=== PATIENT | male | born 1960 | race Caucasian/White ===

== ENCOUNTER 2024-12-06 08:46 | Emergency (ER) | payer MEDICARE, OTHER ==
[~2024-12-06] VITALS: Ht 177.8 cm; Wt 80.0 kg
[~2024-12-06 08:46] MED LIST: ACETAMINOPHEN325 M1 PO; ANUSOL-HC25 MG RC; LORATADINE10 MG PO; MEGA MULTI FOR1 EAC1 PO; PERCOCET 7.5-31 EACH PO; ZOFRAN8 MG PO
[2024-12-06] MEDS ORDERED: LISINOPRIL20 MG PO (08:59)
[2024-12-06] MEDS ORDERED: LIDOCAINE 2% VISCOUS 6 ML SYR TOP ONE (09:15)
[2024-12-06 09:30] LABS: BILIRUBIN, URINE NEGATIVE (negative); BLOOD/HGB, URINE TRACE-I (Negative); KETONE, URINE NEGATIVE (Negative); LEUK ESTERASE, URINE NEGATIVE (negative); NITRITE, URINE NEGATIVE (negative)
[2024-12-06 09:39] LABS: EPITHELIAL CELLS, URINE 0 /lpf (0-1+); WHITE BLOOD CELLS, URINE 0-1 /HPF (0-5)
[2024-12-06 09:40] LABS: BACTERIA, URINE NONE SEEN /hpf (negative); CASTS, URINE NONE SEEN \\lpf; COLLECTION TYPE, URINE CATH; CRYSTALS, URINE CALCIUM OXALATE 1+ (0-1+); REFLEX CULTURE, URINE No (No)
[2024-12-06] MEDS ORDERED: TAMSULOSIN HCL 0.4 MG CAP PO ONE (09:45)
[2024-12-06] MEDS ORDERED: SODIUM CHLORIDE 0.9% 1,000 ML IV ONE (09:45)
[2024-12-06 10:04] LABS: BASOPHILS 0.7 % (0-2); EOSINOPHILS 0.3 % (0-6); HEMATOCRIT 42.6 % (35.0-50.0); LYMPHOCYTES 11.4 % (24-44); MCH 31.7 (27-36); MCHC 35.2 g/dl (30-36); MONOCYTES 5.6 % (0-12); PLATELET COUNT 289 K/uL (140-440); RBC 4.73 M/ul (4.3-5.7)
[2024-12-06 10:19] LABS: ALBUMIN/GLOBULIN RATIO 1.08 (1.1-2.4); ANION GAP 16.5 (7-21); BUN/CREATININE RATIO 20.75 (6.0-28.6); CALCIUM 9.5 mg/dL (8.5-10.1); CREATININE, SERUM 1.06 mg/dL (0.70-1.30); POTASSIUM 3.5 mmol/L (3.5-5.1); PROTEIN, TOTAL 7.7 g/dL (6.4-8.2)
[2024-12-06] MEDS ORDERED: FLOMAX0.4 MG PO (11:40)
[2024-12-06 11:45] VITALS: BP 141/75
[2024-12-06] MEDS ORDERED: PHENAZOPYRIDINE HCL 100 MG TAB PO ONE (11:45)
[2024-12-07] MEDS ORDERED: HYDROCODON-ACE1 EA11 PO (18:31)
[2024-12-07] MEDS ORDERED: ONDANSETRON ODT8 MG PO (18:31)
== END 2024-12-06 11:50 | disposition home or self-care (01) ==
LOC: ED 08:46
PROVIDERS: Emergency Medicine
DX: R33.9 Retention of urine, unspecified (principal); Z88.0 Allergy status to penicillin; Z79.899 Other long term (current) drug therapy
CPT/HCPCS: 36415; 51702; 51798; 74177; 80053; 81001; 85025; 99284-25; A4311; J7030; Q9967

== ENCOUNTER 2024-12-07 14:03 | Emergency (ER) | payer MEDICARE, OTHER ==
[~2024-12-07] VITALS: Ht 177.8 cm; Wt 81.0 kg
[~2024-12-07 14:03] MED LIST changes: +FLOMAX0.4 MG PO; +LISINOPRIL20 MG PO
--- OUTSIDE RECORDS SUMMARY | 2024-12-07 14:10 | XMS ---
PreManage Notification: BIANCA PARKS Security Media Coordinator Events No recent Security Events currently on file CRITERIA MET - [facility] - 2 Visits in 30 Days CARE PROVIDERS There are no care providers on record at this time. Shukri has no Care Guidelines for this patient. Liliya VISIT COUNT (12 MO.) 2 [facility] TOTAL 2 NOTE: Visits indicate total known visits. ED/C VISIT TRACKING (12 MO.) [facility]07[facility]24 14[facility] COMPLAINT: - CATHETER PROBLEM 12/06/2024 08:47 [facility] [place] TYPE: Emergency COMPLAINT: - URINE PROBLEM INPATIENT VISIT TRACKING (12 MO.) No inpatient visits to display in this time frame [email or web address]
[2024-12-07] MEDS ORDERED: ONDANSETRON 4 MG TAB ODT SL ONE (16:45)
[2024-12-07] MEDS ORDERED: LIDOCAINE 2% VISCOUS 6 ML SYR TOP ONE (16:45)
[2024-12-07] MEDS ORDERED: HYDROCODONE/ACETA 7.5/325 TAB PO ONE (16:45)
[2024-12-07] MEDS ORDERED: HYDROCODON-ACE1 EA11 PO (18:31)
[2024-12-07] MEDS ORDERED: ONDANSETRON ODT8 MG PO (18:31)
[2024-12-07 18:43] VITALS: BP 136/78
== END 2024-12-07 18:43 | disposition home or self-care (01) ==
LOC: ED 14:03
DX: T83.091A Other mechanical complication of indwelling urethral catheter, initial encounter (principal); Z79.899 Other long term (current) drug therapy; Z88.0 Allergy status to penicillin
CPT/HCPCS: 51702; 99283; A9270

== ENCOUNTER 2024-12-18 16:06 | Inpatient (IN) | payer MEDICARE ==
[~2024-12-18] VITALS: Ht 177.8 cm; Wt 110.2 kg
[~2024-12-18 16:06] MED LIST changes: +HYDROCODON-ACE1 EA11 PO; +ONDANSETRON ODT8 MG PO
--- OUTSIDE RECORDS SUMMARY | 2024-12-18 16:12 | XMS ---
PreManage Notification: BIANCA PARKS Security Safety Equipment Testing Specialist Events No recent Security Events currently on file CRITERIA MET - [facility] - 2 Visits in 30 Days CARE PROVIDERS There are no care providers on record at this time. Shukri has no Care Guidelines for this patient. Liliya VISIT COUNT (12 MO.) 3 [facility] T[facility] 3 NOTE: Visits indicate total known visits. ED/C VISIT TRACKING (12 MO.) 12/18/2024 16:[address] [facility] [place] TYPE: Emergency COMPLAINT: - ABDNORMAL LAB RESULTS 12/07/2024 14:03 [facility] [place] TYPE: Emergency COMPLAINT: - CATHETER PROBLEM DIAGNOSES: - Allergy status to penicillin - Hematuria, unspecified - Other adjunct faculty for medical terminology (current) drug therapy - Other mechanical complication of indwelling urethral catheter, initial encounter 12/06/2024 08:47 [facility] [place] TYPE: Emergency COMPLAINT: - URINE PROBLEM DIAGNOSES: - Allergy status to penicillin - Other usp (current) drug therapy - Retention of urine, unspecified INPATIENT VISIT TRACKING (12 MO.) No inpatient visits to display in this time frame [email or web address]
[2024-12-18] MEDS ORDERED: SODIUM CHLORIDE 0.9% 1,000 ML IV PRN (18:00)
[2024-12-18] MEDS ORDERED: ondansetron HCL 4 MG/2 ML VIAL IV ONE (18:00)
[2024-12-18] MEDS ORDERED: LIDOCAINE 2% VISCOUS 6 ML SYR TOP ONE ×3 (18:15→21:30)
[2024-12-18 18:20] LABS: ALBUMIN 3.6 g/dL (3.4-5.0); ALBUMIN/GLOBULIN RATIO 0.84 (1.1-2.4); ANION GAP 12.5 (7-21); BILIRUBIN, TOTAL 1.1 mg/dL (0.2-1.0); BUN/CREATININE RATIO 17.47 (6.0-28.6); CALCIUM 9.5 mg/dL (8.5-10.1); CREATININE, SERUM 1.03 mg/dL (0.70-1.30); POTASSIUM 3.5 mmol/L (3.5-5.1); PROTEIN, TOTAL 7.9 g/dL (6.4-8.2)
[2024-12-18 18:28] LABS: BASOPHILS 0.2 % (0-2); HEMATOCRIT 36.4 % (35.0-50.0); HEMOGLOBIN 12.7 g/dL (12.0-18.0); LYMPHOCYTES 5.1 % (24-44); MCH 31.4 (27-36); MCV 89.7 fl (81-99); MONOCYTES 4.5 % (0-12); NEUTROPHILS 90.2 % (39-80); PLATELET COUNT 259 K/uL (140-440); RBC 4.06 M/ul (4.3-5.7); RDW 13.6 (10.5-15.0)
[2024-12-18] MEDS ORDERED: LORazepam 2 MG/ML VIAL IV ONE (18:45)
[2024-12-18 19:12] LABS: BILIRUBIN, URINE NEGATIVE (negative); BLOOD/HGB, URINE LARGE (Negative); KETONE, URINE >=80 (Negative); LEUK ESTERASE, URINE TRACE (negative); NITRITE, URINE POSITIVE (negative); PH, URINE 8.5 (5-7)
[2024-12-18 19:24] LABS: RED BLOOD CELLS, URINE >50 /hpf (0-5)
[2024-12-18 19:25] LABS: BACTERIA, URINE 1+ /hpf (negative); CASTS, URINE NONE SEEN \\lpf; COLLECTION TYPE, URINE CATH; CRYSTALS, URINE NONE SEEN (0-1+); EPITHELIAL CELLS, URINE SQUAMOUS 1+ /lpf (0-1+); REFLEX CULTURE, URINE Yes (No); WHITE BLOOD CELLS, URINE 21-40 /HPF (0-5)
[2024-12-18] MEDS ORDERED: CEFEPIME HCL 2 GM in DEXTROSE 5% 100 ML IV ONE (19:30)
[2024-12-18] MEDS ORDERED: METOCLOPRAMIDE HCL 10 MG/2 ML SDV IV ONE (19:30)
[2024-12-18] MEDS ORDERED: AZO STANDARD95 MG PO (19:34)
[2024-12-18] MEDS ORDERED: FLOMAX0.4 MG PO (19:34)
[2024-12-18 19:49] LABS: LACTIC ACID, BLOOD 1.3 mmol/L (0.4-2.0)
[2024-12-18 21:26] VITALS: BP 164/94
[2024-12-18] MEDS ORDERED: ondansetron HCL 4 MG/2 ML VIAL IV PRN (21:30)
[2024-12-18] MEDS ORDERED: SODIUM CHLORIDE 0.9% 1,000 ML IV SCH (21:30)
--- NOTE | 2024-12-18 21:30 | NUR ---
PATIENT TO THE FLOOR FROM ER BY THIS RN. PATIENT TRANSFERRED FROM STRETCHER TO BED INDEPENDENTLY. IV FLUID INFUSING PER ORDER. BED WEIGHT AND VS OBTAINED AND RECORDED. CPOX IN PLACE. PATIENT EDUCATED TO ROOM AND CALL LIGHT. PATIENT VERBILIZES UNDERSTANDING. ASSESSMENT COMPLETE. PATIENT DENIES FURTHER NEEDS AT THIS TIME. CALL LIGHT IN REACH.
--- NOTE | 2024-12-18 23:56 | NUR ---
PATIENT RESTING IN BED WITH EYES CLOSED. RESPIRATIONS EVEN AND UNLABORED. O2 SAT 94% ON 2L. CALL LIGHT IN REACH.
[2024-12-19] VITALS (10 sets, daily range): BP systolic 125–156; BP diastolic 59–85
--- NOTE | 2024-12-19 01:50 | NUR ---
PATIENT RESTING IN BED. VS AND I&Os OBTAINED AND RECORDED. PATIENT DENIES PAIN AND STATES THAT HE IS SLEEPING WELL. PATIENT HAS NO FURTHER NEEDS AT THIS TIME. CALL LIGHT IN REACH.
--- NOTE | 2024-12-19 03:20 | NUR ---
PATIENT RESTING IN BED ON BACK WITH EYES CLOSED. RESPIRATIONS EVEN AND UNLABORED. CALL LIGHT IN REACH.
[2024-12-19 05:27] LABS: BASOPHILS 0.3 % (0-2); EOSINOPHILS 0.3 % (0-6); HEMATOCRIT 33.8 % (35.0-50.0); HEMOGLOBIN 11.9 g/dL (12.0-18.0); LYMPHOCYTES 11.6 % (24-44); MCH 31.5 (27-36); MCHC 35.3 g/dl (30-36); MCV 89.1 fl (81-99); MONOCYTES 8.7 % (0-12); NEUTROPHILS 79.1 % (39-80); PLATELET COUNT 270 K/uL (140-440); RDW 13.5 (10.5-15.0)
--- NOTE | 2024-12-19 05:38 | NUR ---
NEW BACK IV FLUID INFUSING PER ORDER. PATIENT RESTING IN BED ON BACK WITH EYES CLOSED. RESPIRATIONS EVEN AND UNLABORED. CALL LIGHT IN REACH.
--- NOTE | 2024-12-19 07:35 | NUR ---
Patient resting in bed, eyes closed, respirations even and non labored. Patient has no notable distress. Call light within reach.
[2024-12-19] MEDS ORDERED: CEFEPIME HCL 2 GM in SODIUM CHLORIDE 0.9% 100 ML IV SCH (08:00)
[2024-12-19] MEDS ORDERED: FUROSEMIDE20 MG PO (08:12)
[2024-12-19] MEDS ORDERED: POTASSIUM CHLO10 ME1 PO (08:12)
[2024-12-19] MEDS ORDERED: TAMSULOSIN HCL 0.4 MG CAP PO SCH (09:00)
[2024-12-19] MEDS ORDERED: lisinopriL 20 MG TAB PO SCH (09:00)
[2024-12-19] MEDS ORDERED: CLARITIN10 MG PO (09:04)
[2024-12-19] MEDS ORDERED: CENTRAVITES 501 EACH PO (09:05)
[2024-12-19] MEDS ORDERED: ONDANSETRON ODT8 MG PO (09:06)
--- NOTE | 2024-12-19 09:06 | NUR ---
MED REC COMPLETE
--- NOTE | 2024-12-19 09:24 | NUR ---
Patient sitting up in chair, alert and oriented x3, no acute distress. Patient reports soft formed bm this morning. Patient denies nausea. Fresh water at bedside. IV remains patent, fluids/abx infusing per order. Personal supplies and call light within reach.
[2024-12-19] MEDS ORDERED: ENOXAPARIN SODIUM 40 MG/0.4 ML SYR SUB-Q SCH (09:52)
[2024-12-19] MEDS ORDERED: ACETAMINOPHEN 325 MG TAB PO PRN (10:00)
[2024-12-19] MEDS ORDERED: ondansetron HCL 4 MG/2 ML VIAL IV PRN (10:00)
--- NOTE | 2024-12-19 10:18 | NUR ---
UR CLINICAL REVIEW: 2 MN FOR VERSALUS-PER UX UI DESIGNER MEETS OBS FOR CAUTI WITH NEED TO MONITOR MEDICARE OBS 12/18/24 @ 1607 ORDER MATCHES REG NO AUTH REQUIRED PER MEDICARE GUIDELINES DISCHARGE TO HOME WHEN STABLE 12/20/24
--- NOTE | 2024-12-19 10:58 | NUR ---
VISITED DURING SPIRITUAL CARE ROUNDS. PT APPEARED TO BE SLEEPING. DID NOT DISTURB. PROVIDED PRAYER.
--- NOTE | 2024-12-19 11:35 | NUR ---
Patient in bed watching tv, no distress. Patient denies needs at this time. IV fluids infusing per order. Personal supplies and call light within reach.
[2024-12-19] MEDS ORDERED: PHARMACY RENAL DOSE ADJUSTMENT 1 DOSE MISC PO SCH (12:00)
--- NOTE | 2024-12-19 13:30 | NUR ---
Spoke with Oleg. He states he lives in a house with 2 steps with a ramp. His 's mom lives with them. He does not use any DME, but did have a peters catheter placed last week for retention. He has an appt to see urology tomorrow. Pt states he is usually active, but has not been due to discomfort from the catheter. He lives with his and she does the household tasks. 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 Plans for dc to home. He denies any financial or safety issues in his home.
--- NOTE | 2024-12-19 16:43 | NUR ---
Patient in bed watching tv, no acute distress. Patient denies nausea at this time. Patient reports he is tolerating po well. No current needs, call light within reach.
--- NOTE | 2024-12-19 17:03 | NUR ---
Updated patient's Briana over the phone regarding patient status and plan of care.
--- NOTE | 2024-12-19 18:08 | NUR ---
Patient sitting up in bed eating dinner, no distress. Patient denies nausea. No current needs, personal supplies and call light within reach.
--- NOTE | 2024-12-19 19:32 | NUR ---
RECEIVED REPORT FROM EMILI ENCISO. PT SLEEPING SOUNDLY. WHITE BOARD UPDATED. CALL LIGHT WITHIN REACH.
[2024-12-19] MEDS ORDERED: MELATONIN 3 MG TAB PO PRN (21:00)
--- NOTE | 2024-12-19 21:15 | NUR ---
PT AWAKE. VSS. ORIENTED X 4. DENIES PAIN. LSC. HRR. BTA. LBM TODAY. KIM CATH W/ DARK YELLOW URINE, SOME SEDIMENT. RAC IV INFUSING NS @ 125MLS/HR. PT REQUESTED 7-UP, PROVIDED. KIM CARE DONE BY BEN RAMIREZ. CALL LIGHT WITHIN REACH.
--- NOTE | 2024-12-19 21:43 | NUR ---
KIM CARE DONE.
--- NOTE | 2024-12-19 22:50 | NUR ---
PT SLEEPING, APPEARS COMFORTABLE.
--- NOTE | 2024-12-19 23:50 | NUR ---
SLEEPING SOUNDLY. CPOX IN PLACE.
[2024-12-20] VITALS (14 sets, daily range): BP systolic 175–185; BP diastolic 79–96
--- NOTE | 2024-12-20 02:24 | NUR ---
PT SLEEPING SOUNDLY. APPEARS COMFORTABLE.
[2024-12-20 05:26] LABS: BASOPHILS 0.8 % (0-2); HEMATOCRIT 35.1 % (35.0-50.0); HEMOGLOBIN 12.3 g/dL (12.0-18.0); LYMPHOCYTES 15.7 % (24-44); MCH 31.3 (27-36); MCHC 35.1 g/dl (30-36); MONOCYTES 8.4 % (0-12); NEUTROPHILS 74.1 % (39-80); PLATELET COUNT 277 K/uL (140-440); RBC 3.94 M/ul (4.3-5.7); RDW 13.5 (10.5-15.0)
[2024-12-20 05:41] LABS: ALBUMIN 2.8 g/dL (3.4-5.0); ALBUMIN/GLOBULIN RATIO 0.74 (1.1-2.4); ANION GAP 12.1 (7-21); BILIRUBIN, TOTAL 0.7 mg/dL (0.2-1.0); BUN/CREATININE RATIO 18.29 (6.0-28.6); CALCIUM 8.8 mg/dL (8.5-10.1); CREATININE, SERUM 0.82 mg/dL (0.70-1.30); MAGNESIUM 1.9 mg/dL (1.8-2.4); POTASSIUM 3.1 mmol/L (3.5-5.1); PROTEIN, TOTAL 6.6 g/dL (6.4-8.2)
--- NOTE | 2024-12-20 05:41 | NUR ---
PT UP IN RECLINER, C/O NAUSEA. PT MEDICATED W/ PRN IV ZOFRAN AND GIVEN ANISHA LUISA PER REQUEST. UP TO BR W/ SBA. LARGE AMT OF BELCHING AND FLATUS. KIM CATH W/ YELLOW URINE AND SCANT SEDIMENT.
--- NOTE | 2024-12-20 06:14 | NUR ---
PT STILL FEELING NAUSEATED, DRY HEAVING AND LOTS OF BELCHING. PT GIVEN ALCOHOL SWABS TO SMELL. EMESIS BAG AT BEDSIDE.
--- NOTE | 2024-12-20 07:01 | NUR ---
PT HAD EMESIS OF 100cc. ASSISTED BACK TO BED.
--- NOTE | 2024-12-20 07:38 | NUR ---
Patient resting in bed, eyes closed, respirations even and non labored. Patient has no notable distress. IV fluids infusing per order. Call light within reach.
--- NOTE | 2024-12-20 07:57 | NUR ---
HOURLY ROUNDING. PATIENT SLEEPING AT THE MOMMENT, NO REQUEST CALL LIGHT HAS BEEN PLACED WITHIN REACH. BOARD HAS BEEN UPDATED WITH NURSE AND MANAGER FLIGHT OPERATIONS NAME
[2024-12-20] MEDS ORDERED: LABETALOL HCL 100 MG/20 ML MDV IV PRN (08:00)
[2024-12-20] MEDS ORDERED: POTASSIUM BICARBONATE/CIT AC 20 MEQ TABEF PO ONE (08:00)
[2024-12-20] MEDS ORDERED: LABETALOL HCL 20 MG/4 ML VIAL IV PRN (08:30)
[2024-12-20] MEDS ORDERED: PROCHLORPERAZINE EDISYLATE 10 MG/2 ML VIAL IV PRN (08:30)
[2024-12-20] MEDS ORDERED: POTASSIUM CHLORIDE 40 MEQ,LIDOCAINE HCL 1% 40 MG in DEXTROSE 5% 250 ML IV ONE (08:30)
--- NOTE | 2024-12-20 08:37 | NUR ---
PATIENT DRY HEAVING AND HOLDING HIS STOMACH. PATIENT REPORTS ABDOMINAL PAIN, HE POINTS TO HIS BLADDER REGION. KIM IS PATENT, FLUSHED TO ENSURE PATENCY, NOTABLE RETURN OF CLEAR YELLOW URINE. WARM PACK PLACED OVER BLADDER. ADMIN COMPAZINE 10MG SLOW IV PUSH WITH TYLENOL 650MG PO AT THIS TIME. PATIENT CALMING DOWN AND STARTING TO FALL ASLEEP. CALL LIGHT WITHIN REACH OF PT.
[2024-12-20] MEDS ORDERED: lisinopriL 20 MG TAB PO SCH (09:00)
--- NOTE | 2024-12-20 09:17 | NUR ---
bp 189/84, p68. Admin labetalol 20mg slow iv push.
[2024-12-20] MEDS ORDERED: POTASSIUM CHLORIDE 10 MEQ TABCR PO ONE (10:00)
--- NOTE | 2024-12-20 10:20 | NUR ---
Spoke with Oleg. He states he is not feeling well. He has been nauseated and vomiting since this morning. He denies any needs.
--- NOTE | 2024-12-20 10:25 | NUR ---
bp 181/92, p58. Admin labetalol 20mg slow iv push.
--- NOTE | 2024-12-20 10:50 | NUR ---
Patient restin in bed, eyes closed, respirations non labored. IV fluids/kcl infusing per order. Patient denies needs at this time. Personal supplies and call light within reach.
--- NOTE | 2024-12-20 10:57 | NUR ---
PT NOT AVAILABLE FOR VISIT. PROVIDED PRAYER.
--- NOTE | 2024-12-20 13:37 | NUR ---
UR CONCURRENT REVIEW: 2 MN FOR VERSALUS-MEET INPT FOR CAUTI WITH NEED FOR IV ABX AND ANTIEMETICS MEDICARE OBS TO INPT 12/20/24 ORDER MATCHES REG NO AUTH REQUIRED PER MEDICARE GUIDELINES DISCHARGE TO HOME WHEN STABLE
[2024-12-20] MEDS ORDERED: AMLODIPINE BESYLATE 5 MG TAB PO SCH (13:45)
--- NOTE | 2024-12-20 13:58 | NUR ---
Patient in bed resting, easily wakes to verbal stimuli. Patient reports improved nausea. Continued elevated bp. Dr. Ruggiero updated regarding this- [facility] started. Patient declined lunch. Mansoor prvided per his request. in to see patient, updated her regarding plan of care.
--- NOTE | 2024-12-20 14:01 | NUR ---
Patient resting in bed, easily wakes to verbal sitmuli. Patient reports nausea has improved. Continued elevated bp, Dr. Chavez notified. Norvasc started per provider order. in to see patient, this RN updated her regarding plan of care.
--- NOTE | 2024-12-20 15:55 | NUR ---
Pt resting in bed, respirations even and non labored, no acute distress. No notable distress. Personal supplies and call light within reach.
--- NOTE | 2024-12-20 16:05 | NUR ---
PATIENT IN BED AT THIS TIME. EYELET MAKER CHARTED HOURLY ROUNDS. CALL LIGHT WITHIN REACH, NO FURTHER NEEDS AT THIS TIME.
--- NOTE | 2024-12-20 18:34 | NUR ---
Patient sitting up in chair watching tv, alert and oriented x3. Patient more alert conversing with staff this evening, he reports he feels much better. Warm blanket and fresh water provided. Patient encouaraged to increase fluid intake, pt receptive.
--- NOTE | 2024-12-20 19:15 | NUR ---
PATIENT SITTING UP IN CHAIR WATCHING TV. PATIENT DENIES ANY NEEDS AT THIS TIME. CALL LIGHT AND PERSONAL BELONGINGS ARE WITHIN REACH.
--- NOTE | 2024-12-20 20:55 | NUR ---
FRESH ICE WATER PROVIDED. PATIENT REPORTING SOME NAUSEA AND REQUESTING NAUSEA MEDICATION. PATIENT WITHOUT FURTHER NEEDS. CALL LIGHT AND PERSONAL BELONGINGS ARE WITHIN REACH.
--- NOTE | 2024-12-20 21:20 | NUR ---
PATIENT MEDICATED PER EMAR. PATIENT ASSESSMENT COMPLETED. PATIENT IS ALERT AND ORIENTED. NAUSEA MEDICATION GIVEN. WET WASHCLOTH PROVIDED PER PATIENT REQUEST "TO COVER MY EYES THROUGHOUT THE NIGHT SO THEY DON'T DRY OUT". PATIENT WITHOUT FURTHER NEEDS AT THIS TIME. CALL LIGHT AND PERSONAL BELONGINGS ARE WITHIN REACH.
--- NOTE | 2024-12-20 22:15 | NUR ---
PATIENT RESTING IN BED WITH WASHCLOTH OVER EYES AND MOUTH OPEN. EVEN AND UNLABRORED RESPIRATIONS NOTED. CALL LIGHT AND PERSONAL BELONGINGS ARE WITHIN REACH.
--- NOTE | 2024-12-20 23:20 | NUR ---
PATIENT RESTING IN BED WITH WASHCLOTH OVER HIS EYES AND MOUTH OPENED. EVEN AND UNLABORED RESPIRATIONS NOTED. CALL LIGHT AND PERSONAL BELONGINGS ARE WITHIN REACH.
[2024-12-21] VITALS (8 sets, daily range): BP systolic 114–160; BP diastolic 66–91
--- NOTE | 2024-12-21 00:28 | NUR ---
PATIENT RESTING IN BED WITH WASHCLOTH OVER HIS EYES AND MOUTH OPENED. EVEN AND UNLABORED RESPIRATIONS NOTED. CALL LIGHT AND PERSONAL BELONGINGS ARE WITHIN REACH.
--- NOTE | 2024-12-21 01:53 | NUR ---
PATIENT RESTING IN BED AND WOKE WHEN THIS RN OPENED DOOR. PATIENT DENIES ANY PAIN OR NAUSEA. FRESH ICE FOR WATER AND CRACKERS PROVIDED. PATIENT WITHOUT FURTHER NEEDS AT THIS TIME. CALL LIGHT AND PERSONAL BELONINGS ARE WITHIN REACH.
--- NOTE | 2024-12-21 03:01 | NUR ---
PATIENT RESTING IN BED AND STATES "I'M DOING OKAY". CALL LIGHT AND PERSONAL BELONGINGS ARE WITHIN REACH.
--- NOTE | 2024-12-21 04:54 | NUR ---
PATIENT RESTING IN BED WITH HIS EYES CLOSED AND MOUTH OPEN. EVEN AND UNLABORED RESPIRATIONS NOTED. CALL LIGHT AND PERSONAL BELONGINGS ARE WITHIN REACH.
[2024-12-21 05:22] LABS: BASOPHILS 1.1 % (0-2); EOSINOPHILS 0.8 % (0-6); HEMATOCRIT 34.6 % (35.0-50.0); HEMOGLOBIN 12.4 g/dL (12.0-18.0); LYMPHOCYTES 17.1 % (24-44); MCH 31.3 (27-36); MCHC 35.7 g/dl (30-36); MCV 87.6 fl (81-99); MONOCYTES 7.7 % (0-12); NEUTROPHILS 73.3 % (39-80); PLATELET COUNT 314 K/uL (140-440); RBC 3.95 M/ul (4.3-5.7); RDW 13.6 (10.5-15.0)
[2024-12-21 05:37] LABS: ALBUMIN/GLOBULIN RATIO 0.77 (1.1-2.4); ANION GAP 9.9 (7-21); BILIRUBIN, TOTAL 0.7 mg/dL (0.2-1.0); BUN/CREATININE RATIO 16.45 (6.0-28.6); CALCIUM 9.1 mg/dL (8.5-10.1); CREATININE, SERUM 0.79 mg/dL (0.70-1.30); MAGNESIUM 2.1 mg/dL (1.8-2.4); POTASSIUM 2.9 mmol/L (3.5-5.1); PROTEIN, TOTAL 6.9 g/dL (6.4-8.2)
--- NOTE | 2024-12-21 05:38 | NUR ---
RN [facility] OBTAINED VITALS AND I&O. PT STATES NO NEEDS AT THIS TIME. CALL LIGHT WITHIN REACH.
--- NOTE | 2024-12-21 06:17 | NUR ---
PATIENT MEDICATED PER EMAR. PATIENT WITHOUT FURTHER NEEDS AT THIS TIME. CALL LIGHT AND PERSONAL BELONGINGS ARE WITHIN REACH.
--- NOTE | 2024-12-21 07:20 | NUR ---
RECIEVED REPORT FROM EMILI BURRELL. PT LYING IN BED AWAKE, AT THE BEDSIDE. PT REQUESTS ICE WATER, REQUESTS COFFEE, BOTH GIVEN. PT STATES NO FURTHER NEEDS AT THIS TIME, CALL LIGHT WITHIN REACH.
[2024-12-21] MEDS ORDERED: POTASSIUM CHLORIDE 40 MEQ,LIDOCAINE HCL 1% 40 MG in DEXTROSE 5% 250 ML IV ONE ×2 (07:45→09:00)
--- NOTE | 2024-12-21 08:15 | NUR ---
INTO SEE PATIENT. PATIENT EATING BREAKFAST AND SITTING WITH HIS . HOPES TO GET DISCHARGED TODAY. WILL TAKE HIM HOME. NO FUTHER CM NEEDS OR QUESTIONS.
[2024-12-21] MEDS ORDERED: AMLODIPINE BESYLATE 10 MG TAB PO SCH (09:00)
--- NOTE | 2024-12-21 09:15 | NUR ---
MD AT THE BEDSIDE. PT AWAKE UP TO CHAIR. CALL LIGHT WITHIN REACH.
--- NOTE | 2024-12-21 09:57 | NUR ---
PATIENT CALL THIS MORING WANTED TO SIT UP IN HIS CHAIR. BED LINENS CHANGED. ASKED PATIENT IF HE WOULD LIKE TO TAKE A SHOWER TODAY AND HE SAID IT DEPENDED ON WHAT THE DOCTORS SAID. NOW I AM BACK IN HIS ROOM DID HIS VITALS. HE WOULD LIKE TO TAKE A SHOWER AFTER HIS KIM IS OUT. IN ROOM.
--- NOTE | 2024-12-21 10:57 | NUR ---
PT NOT AVAILABLE FOR VISIT. PROVIDED PRAYER.
--- NOTE | 2024-12-21 11:25 | NUR ---
PT UP TO SHOWER INDEPENDENTLY. LINENS CHANGED BY THIS RN. PT DENIES PAIN, NAUSEA, OR TENDERNESS TO ABDOMEN. PT STATES HE HAS PASSED GAS THIS MORNING AND ABDOMINAL PAIN HAS NOT BEEN PRESENT. PT REQUESTS ICE FOR HIS JUICE, GIVEN. PT EDUCATION ON CALLING WHEN HE VOIDS HE HAS JUST HAD HIS KIM CATHETER REMOVED, PT VERBALIZES UNDERSTANDING. PT STATES NO FURTHER NEEDS AT THIS TIME, CALL LIGHT WITHIN REACH.
--- NOTE | 2024-12-21 12:27 | NUR ---
PT FINISHES LUNCH. PT DENIES PAIN OR NAUSEA AT THIS TIME. PT STATES NO NEEDS AT THIS TIME, CALL LIGHT WITHIN REACH.
--- NOTE | 2024-12-21 14:43 | NUR ---
AFTER PATIENT'S VITALS WERE DONE. BROUGHT PATIENT A FRESH CUP OF ICE WATER AND A JUICE.
--- NOTE | 2024-12-21 15:00 | NUR ---
THIS RN NOTIFIED BY SN ROSEANNA THAT PT IV SITE IS LEAKING WITH A "SMALL BUMP" AT INSERTION SITE. THIS RN TO BEDSIDE TO ASSESS, THIS RN CONFIRMS IV INFILTRATION FROM POTASSIUM CHLORIDE INFUSION IS PRESENT. INFUSION STOPPED BY SN ROSEANNA. SN ROSEANNA PLACES NEW IV IN LEFT FOREARM. PHARMACY CONTACTED REGARDING OBTAINING HYALURONIDASE TO PERFORM PROTOCOL FOR POTASSIUM INFILTRATION. MD CALLED BY THIS RN, MD STATES TO PLACE ORDER FOR HYALURONIDASE, STATES TO NOT INFUSE SMALL AMOUNT OF POTASSIUM CHLORIDE LEFT IN BAG. MD STATES TO ORDER 40MEQ PO POTASSIUM CHLORIDE. ORDERS PLACED, REPEAT BACK PERFORMED. IV FROM INFILTRATION REMOVED, HEAT PACK APPLIED PER PROTOCOL. PT STATES NO PAIN AT SITE, NO REDNESS PRESENT. SWELLING SMALL IN SIZE. PT STATES NO NEEDS AT THIS TIME, CALL LIGHT WITHIN REACH.
[2024-12-21] MEDS ORDERED: HYALURONIDASE, HUMAN RECOMB. 150 UNIT/ML VIAL SUB-Q ONE (15:45)
[2024-12-21] MEDS ORDERED: POTASSIUM CHLORIDE 10 MEQ TABCR PO ONE (15:45)
[2024-12-21] MEDS ORDERED: POTASSIUM CHLORIDE 10 MEQ TABCR ONE (16:07)
--- NOTE | 2024-12-21 16:15 | NUR ---
PT STATES HE NEEDS TO USE RESTROOM, WALKS INDEPENDENTLY TO RESTROOM WITH IV POLE. PT STATES NO NEEDS AT THIS TIME. IN THE ROOM. CALL LIGHT WITHIN REACH.
--- NOTE | 2024-12-21 17:20 | NUR ---
THIS RN BLADDER SCANS PT DUE TO PT C/O NEEDING TO VOID BUT BEING UNABLE TO. BLADDER SCAN SHOWS [phone]. MD UPDATED. MD STATES TO STRAIGHT CATH PT AT THIS TIME. ORDER PLACED, REPEAT BACK PERFORMED.
[2024-12-21] MEDS ORDERED: LIDOCAINE 2% VISCOUS 6 ML SYR TOP ONE (17:30)
[2024-12-21 17:57] LABS: ANION GAP 10.2 (7-21); BUN/CREATININE RATIO 18.39 (6.0-28.6); CALCIUM 9.1 mg/dL (8.5-10.1); CREATININE, SERUM 0.87 mg/dL (0.70-1.30); POTASSIUM 3.2 mmol/L (3.5-5.1)
--- NOTE | 2024-12-21 18:47 | NUR ---
LIDOCAINE APPLIED PER ORDER AND PT REQUEST TO PREPARE FOR CATHETER INSERTION. STRAIGHT CATHETER ATTEMPT UNSUCCESSFUL. COUDE CATHETER UTILIZED SUCCESSFULLY, 700ML OF CLEAR YELLOW URINE REMOVED, CATHETER REMOVED AT THIS TIME. PT TOLERATES PROCEDURE WELL. HYALURONIDASE 150 UNIT GIVEN AROUND SITE OF POTASSIUM INFILTRATION PER PROTOCOL, PT TOLERATES WELL. NO INCREASE IN SWELLING PRESENT AT SITE. NO REDNESS, PAIN, OR BRUISING PRESENT AT SITE. PT REQUESTS JUICE AND ICE AT THIS TIME, GIVEN. PT DINNER TRAY SET UP. PT DENIES ANY FURTHER NEEDS AT THIS TIME, STATES HE FEELS RELIEF AFTER CATHETERIZATION. CALL LIGHT WITHIN REACH.
[2024-12-21] MEDS ORDERED: POLYETHYLENE GLYCOL 3350 1 PACKET PO ONE (19:15)
--- NOTE | 2024-12-21 19:35 | NUR ---
RECEIVED REPORT FROM EMILI PALUMBO. PT RESTING IN BED, DENIES NEEDS OR CONCERNS AT THIS TIME. CALL LIGHT WITHIN REACH.
--- NOTE | 2024-12-21 20:00 | NUR ---
PT UP AMBULATING IN ROOM, WANTS TO AMBULATE IN HALLS. DENIES PAIN. LSC. HRR. BTA. REPORTS LBM YESTERDAY. DUE TO VOID SINCE F/C REMOVAL EARLIER TODAY BUT REPORTS NO CURRENT URGE TO VOID. LFA IV INFUSING ATB THEN SL'D. PREVIOUS IV SITE TO RAC SLIGHTLY SWOLLEN AND REDDENED FROM IV KCL INFILTRATION ON DAYSHIFT.
--- NOTE | 2024-12-21 20:20 | NUR ---
PT AMBULATING INDEPENDENTLY IN HALLS. PT SIPPING ON MIRALAX WHILE WALKING.
--- NOTE | 2024-12-21 22:11 | NUR ---
PT CALLED TO REPORT VOID. 125cc URINE IN URINAL.
--- NOTE | 2024-12-22 00:26 | NUR ---
PT SLEEPING SOUNDLY, APPEARS COMFORTABLE. CALL LIGHT WITHIN REACH.
--- NOTE | 2024-12-22 02:33 | NUR ---
PT AWAKE, SLEEPING BETWEEN CARE. DENIES NEEDS OR CONCERNS AT THIS TIME.
[2024-12-22 05:38] LABS: BASOPHILS 0.7 % (0-2); EOSINOPHILS 1.3 % (0-6); HEMOGLOBIN 13.2 g/dL (12.0-18.0); LYMPHOCYTES 18.2 % (24-44); MCH 31.5 (27-36); MCHC 35.6 g/dl (30-36); MCV 88.4 fl (81-99); MONOCYTES 7.9 % (0-12); NEUTROPHILS 71.9 % (39-80); PLATELET COUNT 355 K/uL (140-440); RBC 4.19 M/ul (4.3-5.7); RDW 13.5 (10.5-15.0)
[2024-12-22 05:53] LABS: ANION GAP 11.5 (7-21); BUN/CREATININE RATIO 19.27 (6.0-28.6); CALCIUM 9.5 mg/dL (8.5-10.1); CREATININE, SERUM 0.83 mg/dL (0.70-1.30); MAGNESIUM 2.1 mg/dL (1.8-2.4); POTASSIUM 3.5 mmol/L (3.5-5.1)
[2024-12-22 05:56] VITALS: BP 148/81
--- NOTE | 2024-12-22 06:03 | NUR ---
PT UP AMBULATING IN ROOM, REQUESTING 0900 DOSE OF FLOMAX NOW PER HOME ROUTINE. FLOMAX GIVEN. PT IN TO BR TO ATEMPT ANOTHER VOID THIS AM. DENIES ANY BURNING OR DISCOMFORT W/ VOIDING, REPORTS SLOW START OF STREAM.
[2024-12-22 06:05] VITALS: BP 148/81
--- NOTE | 2024-12-22 07:10 | NUR ---
RECIEVED REPORT FROM EMILI HEAD. PT AMBULATING IN [place], STATES NO CURRENT NEEDS.
[2024-12-22] MEDS ORDERED: CEFTRIAXONE SODIUM 1 GM in SODIUM CHLORIDE 0.9% 100 ML IV SCH (07:45)
[2024-12-22] MEDS ORDERED: POTASSIUM CHLORIDE 10 MEQ TABCR PO ONE (07:45)
--- NOTE | 2024-12-22 07:45 | NUR ---
PT REQUESTED TO TAKE SHOWER. PT ABULATES INDEPENDENTLY.
--- NOTE | 2024-12-22 08:04 | NUR ---
In with pt for bladder scan, post void residual. Pt states he voided while taking a shower. Bladder scan shows >379ml. Primary RN notified.
--- NOTE | 2024-12-22 08:14 | NUR ---
Advised by ramone Chambers, that pt states he has a rash on his back. In with pt to assess skin. Noted small red raised bumps scattered over the entirety of the pt's back, some with crusted caps. Pt states that it does itch when touched, but not just sitting there. He states that he took a hot shower and had been laying in bed and thought, maybe, that it was a heat rash from sweat. Reviewed med list with pt and pt's spouse. Pt states that Norvasc is a new med for him (we administered the first dose yesterday morning and he has not had a dose, yet, today). Primary RN notified.
[2024-12-22] MEDS ORDERED: LIDOCAINE 2% VISCOUS 6 ML SYR TOP ONE (08:30)
--- NOTE | 2024-12-22 08:30 | NUR ---
AT THE BEDSIDE DISCUSSING POC WITH PT AND . MD STATES TO ORDER CHANGE OF DOSE FOR PT'S FLOMAX FROM 0.4MG TO 0.8MG. ORDER CHANGED, REPEAT BACK PERFORMED.
[2024-12-22] MEDS ORDERED: TAMSULOSIN HCL 0.4 MG CAP PO SCH (09:00)
[2024-12-22] MEDS ORDERED: LISINOPRIL20 MG PO (09:04)
[2024-12-22] MEDS ORDERED: TAMSULOSIN HCL0.4 MG PO (09:04)
[2024-12-22] MEDS ORDERED: AMLODIPINE BESY10 MG PO (09:04)
[2024-12-22] MEDS ORDERED: MACROBID 100 M100 MG PO (09:06)
[2024-12-22 09:30] VITALS: BP 128/77
--- NOTE | 2024-12-22 09:33 | NUR ---
PT WALKED LAPS IN MULLER. PT HAS NO NEEDS AT THIS TIME. PT IN CHAIR. PT IN ROOM. CALL LIGTH WITHIN REACH.
[2024-12-22 10:00] VITALS: BP 128/77
--- NOTE | 2024-12-22 10:00 | NUR ---
PT UP TO CHAIR, AT THE BEDSIDE. PT TAKES PO MEDICATIONS W/O DIFFICULTY. PT VOIDS WHILE THIS RN IN ROOM. EMILI WEST AT BEDSIDE TO DO STRAIGHT CATHETER EDUCATION, PT AND VERBALIZE UNDERSTANDING. PT STATES NO FURTHER NEEDS AT THIS TIME, CALL LIGHT WITHIN REACH.
[2024-12-22 11:00] VITALS: BP 133/66
--- NOTE | 2024-12-22 11:02 | NUR ---
IV DC'D WNL, PT DRESSED SELF IN OWN CLOTHES. VSS. DC PACKET AND EDUCATION GIVEN, PT AND VERBALIZE UNDERSTANDING. PT STATES ALL QUESTIONS HAVE BEEN ANSWERED. SUPPLIES AND EDUCATION FOR AT HOME INTERMITTENT CATHETERIZATION GIVEN TO PT TO TAKE HOME. PT LEAVES WITH ALL PERSONAL BELONGINGS. PT AMBULATES TO WHEELCHAIR, WHEELED TO FRONT OF BUILDING BY NURSING PERSONEL.
== END 2024-12-22 11:02 | disposition home or self-care (01) | DRG 700 ==
LOC: ED 16:06 → MS 16:07
PROVIDERS: Emergency Medicine; Student in an Organized Health Care Education/Training Program; ADMIT Student in an Organized Health Care Education/Training Program; ATTEND Student in an Organized Health Care Education/Training Program
DX: T83.511A Infection and inflammatory reaction due to indwelling urethral catheter, initial encounter (principal); Y84.6 Urinary catheterization as the cause of abnormal reaction of the patient, or of later complication, without mention of misadventure at the time of the procedure; N40.1 Benign prostatic hyperplasia with lower urinary tract symptoms; R33.8 Other retention of urine; Z86.19 Personal history of other infectious and parasitic diseases; B96.20 Unspecified Escherichia coli [E. coli] as the cause of diseases classified elsewhere; I10 Essential (primary) hypertension; Z88.0 Allergy status to penicillin; Z79.899 Other long term (current) drug therapy; Z90.89 Acquired absence of other organs; R09.02 Hypoxemia
CPT/HCPCS: 36415; 51701; 51798; 71045; 74177; 80048; 80053; 81001; 83605; 83735; 85025; 87088; 94762; A4311; A9270; J0692; J0696; J0780; J1650; J2060; J2405; J2765; J3473; J3480; J3490; J7030; J7060; Q9967

== ENCOUNTER 2025-04-03 11:56 | Day surgery (SDC) | payer MEDICARE ==
[~2025-04-03] VITALS: Ht 177.8 cm; Wt 75.0 kg
[~2025-04-03 11:56] MED LIST changes: +AMLODIPINE BESY10 MG PO; +AZO STANDARD95 MG PO; +CENTRAVITES 501 EACH PO; +CIPRO500 MG PO; +CLARITIN10 MG PO; +FUROSEMIDE20 MG PO; +IBLOOD GLUCOSE TEST STRIP 1 EA TEST VI PRN; +LACTATED RINGER'S 1,000 ML IV SCH; +LIDOCAINE HCL 1% 5 ML SDV INJ ONE; +MACROBID 100 M100 MG PO; +MIDAZOLAM HCL 5 MG/5 ML VIAL IV PRN; +POTASSIUM CHLO10 ME1 PO; +TAMSULOSIN HCL0.4 MG PO; +fentaNYL citrate 100 MCG/2 ML VIAL IV PRN
--- NOTE | 2025-04-03 12:31 | NUR ---
PT C/O NAUSEA/VOMITING THIS AM. MEDICATION GIVEN PER EMAR.
[2025-04-03 12:39] VITALS: BP 182/92
[2025-04-03] MEDS ORDERED: fentaNYL citrate 100 MCG/2 ML VIAL ONE (12:49)
[2025-04-03] MEDS ORDERED: MIDAZOLAM HCL 5 MG/5 ML VIAL ONE (12:49)
--- NOTE | 2025-04-03 13:56 | NUR ---
04/03/25 1356 Michelle Valenzuela 1346-PATIENT ARRIVED TO PACU ON 2L NC RR EVEN. PATIENT LAYING LEFT LATERAL REACTIVE TO VERBAL STIMULI OPENING EYES. SR WITH PVCS HR 70'S. IVF INFUSING. PATIENT AROUSING ABDOMEN SOFT REPOSITIONED SELF TO BACK PASSING GAS. 1356-PATIENT SLEEPING 2L NC 97% RR EVEN
[2025-04-03 14:32] VITALS: BP 165/90
--- NOTE | 2025-04-05 13:25 | PATH ---
[facility] [address], [place] [address] Signed SPECIMEN(S): A ASCENDING COLON POLYP SPECIMEN(S): B SIGMOID POLYP SPECIMEN SOURCE: A. ASCENDING COLON POLYP B. SIGMOID POLYP CLINICAL HISTORY: Family history of colon cancer, history of C. difficile, diverticulosis, polyps X2 FINAL PATHOLOGIC DIAGNOSIS: A. Ascending colon polyp - Fragments of tubular adenoma. B. Sigmoid polyp - Tubular adenoma. AMB MICROSCOPIC EXAMINATION: Histologic sections of all submitted blocks are examined by light microscopy. These findings, together with the gross examination, support the pathologic diagnosis. GROSS DESCRIPTION: A. The specimen, labeled and designated "Dahl, ascending colon polyp," is received in formalin and consists of three alcantara soft tissue fragments, ranging from 0.1-0.4 cm. Entirely submitted in (A1). B. The specimen, labeled and designated "Adhl, sigmoid polyp," is received in formalin and consists of a red-alcantara polypoid piece of tissue (0.7 x 0.7 x 0.5 cm). The possible resection margin is inked blue, and the tissue is bisected to reveal pink-alcantara soft cut surfaces. The specimen is submitted entirely in cassette (B1). VB (under the direct supervision of a pathologist) The Gross Description was prepared using a voice recognition system. The report was reviewed for accuracy; however, sound-alike word errors, addition and/or deletions may occur. If there is any question about this report, please contact Client Services. ADDITIONAL NOTES: Immunohistochemical and/or in situ hybridization studies if performed in this case included appropriate positive controls that reacted as expected. This PATIENT NAME: BIANCA DAHL PATHOLOGY DATE OF : 58 REPORT #: [id number] PHYSICIAN: TRINA MONSALVE PCP: CONNER SANDERS MD REPORT IS CONFIDENTIAL AND NOT TO BE RELEASED WITHOUT AUTHORIZATION [facility] [address] [place], [place] [address] Signed test was developed and its performance characteristics determined by [facility]. It has not been cleared or approved by the U.S. Food and Drug Administration. The FDA has determined that such clearance or approval is not necessary. This test is used for clinical purposes. It should not be regarded as investigational or for research. [facility] is certified under the Clinical Laboratory Improvement Amendments of 1988 (CLIA) as qualified to perform high complexity clinical laboratory testing. PERFORMING LABORATORY: Technical component was performed by [facility], [address] [place] [address] (CLIA# [id number]). Professional interpretation was performed by [facility] - [address] [id number] Diagnostician: Sudha Richey MD Pathologist Electronically Signed 04/05/2025 Copies: ~ PATIENT NAME: BIANCA DAHL PATHOLOGY DATE OF : 58 REPORT #: [id number] PHYSICIAN: TRINA PATHOLOGY PCP: CONNER SANDERS MD REPORT IS CONFIDENTIAL AND NOT TO BE RELEASED WITHOUT AUTHORIZATION
--- NOTE | 2025-04-07 14:10 | OR ---
[facility] [address], [place] [address] Signed DATE OF OPERATION: 04/03/2025 SURGEON: Lisa Mcclelland MD PREOPERATIVE DIAGNOSES: 1. Family history of colon cancer (father). 2. History of clostridium difficile colitis, July 2024. POSTOPERATIVE DIAGNOSES: 1. Diverticulosis, left and right side. 2. Polyps x2 (right colon and sigmoid at 18 cm). PROCEDURE: Total colonoscopy to cecum with cold snare polypectomy x2. ANESTHESIA: Intravenous sedation fentanyl 100 mcg, Versed 6 mg pretreatment with Zofran 4 mg. 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 He underwent colonoscopy in 2013, recommended to have repeat colonoscopy in 5 years, but did not do so. He has family history of colon cancer in his father. He understands he is behind schedule in the recommended timeframe. In July, he did have C difficile colitis which was quite problematic and ultimately was cured and clinically has no diarrhea problems. He is admitted to undergo surveillance colonoscopy on the basis of family history. He understands the risk of bleeding, infection, and perforation. FINDINGS: In the preoperative area he had rather significant retching and nausea for which Zofran was administered with good clinical effect. As regard to colonoscopy, the prep was good. Complete colonoscopy was undertaken of the cecum. There were two polyps, both excised with cold snare technique and diverticula of the sigmoid and elsewhere. DESCRIPTION OF PROCEDURE: The patient was brought to the endoscopy suite and placed in lateral decubitus position given intravenous sedation to the point of slurred speech and nystagmus. Pretreatment with Zofran 4 mg had been effective for his retching preoperatively. Electronically Signed By: LISA MCCLELLAND MD 04/07/25 1410 PATIENT NAME: BIANCA PARKS OPERATIVE REPORT DATE OF : 58 REPORT #: [id number] PHYSICIAN: LISA MCCLELLAND MD PCP: CONNER ISBELL MD REPORT IS CONFIDENTIAL AND NOT TO BE RELEASED WITHOUT AUTHORIZATION [facility] [address], [place] [address] Signed Digital rectal examination was found to be normal. Olympus video colonoscope was passed in the rectum and manipulated throughout the colon noting diverticula of the sigmoid. Scope was ultimately advanced into the right colon where a sessile polyp was noted. There was not excessively large, certainly less than 5 mm in total, probably cold snare technique was used to excise it . Specimen was passed for Pathology. The scope was then advanced to the cecum. Ileocecal valve and appendiceal orifice were normal. Scope was withdrawn and the area of previous excision site was noted at the distal right colon. Further withdrawal showed no other abnormality until 18 cm from the anal verge where amongst numerous diverticula was a sessile polyp that was only partially pedunculated. This was excised with cold snare technique. It did ooze a fair amount and on that basis hemoclip was applied. The polyp was captured, retrieved and offloaded. Scope was withdrawn and diverticula were noted of the sigmoid and the rectum appeared normal. Retroflexed view was normal as well. The scope was removed. The patient was taken to the recovery room in good condition. CONCLUDING DIAGNOSIS: Polyps x2 and diverticulosis. PLAN: Recommend repeat colonoscopy in 5 years based on family history and current history of polyps. He will return to the ongoing care of Dr. Isbell. MD CONSTANTINE Velázquez/MOLLY /[id number] cc: Dr. Isbell Copies: ~ Electronically Signed By: LISA MCCLELLAND MD 04/07/25 1410 PATIENT NAME: BIANCA PARKS OPERATIVE REPORT DATE OF : 58 REPORT #: [id number] PHYSICIAN: LISA MCCLELLAND MD PCP: CONNER ISBELL MD REPORT IS CONFIDENTIAL AND NOT TO BE RELEASED WITHOUT AUTHORIZATION
== END 2025-04-03 14:40 | disposition home or self-care (01) ==
LOC: OPS 11:56 → DS 11:56 → OPS 13:00
PROVIDERS: ATTEND Surgery
PROC: 0DBN8ZZ Excision of Sigmoid Colon, Via Natural or Artificial Opening Endoscopic (ICD-10-PCS; 2025-04-03)
PROC: 0DBK8ZZ Excision of Ascending Colon, Via Natural or Artificial Opening Endoscopic (ICD-10-PCS; principal; 2025-04-03 14:00)
DX: Z12.11 Encounter for screening for malignant neoplasm of colon (principal); D12.2 Benign neoplasm of ascending colon; D12.5 Benign neoplasm of sigmoid colon; K57.30 Diverticulosis of large intestine without perforation or abscess without bleeding; I10 Essential (primary) hypertension; N40.1 Benign prostatic hyperplasia with lower urinary tract symptoms; N13.8 Other obstructive and reflux uropathy; Z86.19 Personal history of other infectious and parasitic diseases; Z79.899 Other long term (current) drug therapy; Z88.0 Allergy status to penicillin; Z80.0 Family history of malignant neoplasm of digestive organs
CPT/HCPCS: 88305; 99153; C1889; G0500; J2250; J2405; J3010; J7121

== ENCOUNTER 2025-05-12 10:45 | Emergency (ER) | payer MEDICARE ==
[~2025-05-12] VITALS: Ht 177.8 cm; Wt 76.2 kg
--- OUTSIDE RECORDS SUMMARY | ~2025-05-12 | XMS | Continuity of Care Document ---
Demographics + + + | Address | [address] [address] [address] | | | [place] [address] | + + + | Preferred Language | Unknown | + + + | Marital Status | | + + + | Denominational Affiliation | Unknown | + + + | Race | White | + + + | Ethnic Group | Not or | + + + Author + + + | Author | [facility] | + + + | Organization | [facility] | + + + | Address | [address] | | | [place] [address] | + + + | Phone | | + + + Care Team Providers + + + + | Care Concrete Swimming Pool Installer Name | Role | Phone | + + + + Unavailable | Unavailable | + + + + Unavailable | Unavailable | + + + + Allergies and Intolerances + + + + + + | date | description | facility | reaction | severity | + + + + + + | 2025-04-03 | Penicillin | [facility] - | (no reaction) | (no severity) | | 00:00 | | [facility] | | | + + + + + + | 2025-04-03 | Penicillin | [facility] - | (no reaction) | (no severity) | | 00:00 | | [facility] | | | + + + + + + | 2025-04-03 | Penicillin | [facility] - | (no reaction) | (no severity) | | 00:00 | | [facility] | | | + + + + + + Encounters No information. Functional Status No information. Immunizations No information. Medications + + + + | date | description | facility | + + + + | (no date) | HYDROCORTISONE ACETATE | [facility] | | | | [facility] | + + + + | (no date) | LORATADINE | [facility] | | | | [facility] | + + + + | (no date) | ACETAMINOPHEN | [facility] | | | | [facility] | + + + + Problems No information. Procedures No information. Results/Labs No information. Social History +--------+ + + | date | description | facility | +--------+ + + Vital Signs + + + +---------+ | date | measurement | value | units | + + + +---------+ | 2025-04-02 00:00 | BMI | 30.9 | kg/m2 | + + + +---------+ | 2025-04-02 00:00 | height_metric | 177.8 | cm | + + + +---------+ | 2025-04-02 00:00 | height_standard | 70 | in | + + + +---------+ | 2025-04-02 00:00 | weight_metric | 97.701 | kg | + + + +---------+ | 2025-04-02 00:00 | weight_standard | 215.393 | lb | + + + +---------+ | 2025-04-03 00:00 | BMI | 23.7 | kg/m2 | + + + +---------+ | 2025-04-03 00:00 | BP_diastolic | 90 | mmHg | + + + +---------+ | 2025-04-03 00:00 | BP_systolic | 165 | mmHg | + + + +---------+ | 2025-04-03 00:00 | heart_rate | 79 | /min | + + + +---------+ | 2025-04-03 00:00 | height_metric | 177.8 | cm | + + + +---------+ | 2025-04-03 00:00 | height_standard | 70 | in | + + + +---------+ | 2025-04-03 00:00 | o2_saturation | 100 | % | + + + +---------+ | 2025-04-03 00:00 | respiration_rate | 16 | /min | + + + +---------+ | 2025-04-03 00:00 | | 97.3 | F | | | temperature_standar | | | | | d | | | + + + +---------+ | 2025-04-03 00:00 | weight_metric | 75.001 | kg | + + + +---------+ | 2025-04-03 00:00 | weight_standard | 165.350 | lb | + + + +---------+"
[~2025-05-12 10:45] MED LIST changes: -IBLOOD GLUCOSE TEST STRIP 1 EA TEST VI PRN; -LACTATED RINGER'S 1,000 ML IV SCH; -LIDOCAINE HCL 1% 5 ML SDV INJ ONE; -MIDAZOLAM HCL 5 MG/5 ML VIAL IV PRN; -fentaNYL citrate 100 MCG/2 ML VIAL IV PRN
[2025-05-12] MEDS ORDERED: SODIUM CHLORIDE 0.9% 1,000 ML IV ONE (12:00)
[2025-05-12] MEDS ORDERED: MORPHINE SULFATE 4 MG/ML VIAL IV ONE (12:00)
[2025-05-12] MEDS ORDERED: FAMOTIDINE 20 MG/ 2 ML VIAL IV ONE (12:00)
[2025-05-12 12:04] LABS: BASOPHILS 0.6 % (0.2-1.2); EOSINOPHILS 1.6 % (0.8-7.0); LYMPHOCYTES 16.0 % (21.8-53.1); MCH 30.8 PG (25.7-32.2); MCHC 34.3 g/dL (32.3-36.5); MCV 89.9 fL (79.0-92.2); MONOCYTES 9.9 % (5.3-12.2); NEUTROPHILS 71.6 % (34.0-67.9); RBC 4.67 M/uL (4.63-6.08)
[2025-05-12 12:06] LABS: BLOOD/HGB, URINE NEGATIVE (Negative); KETONE, URINE TRACE (Negative); LEUK ESTERASE, URINE NEGATIVE (negative); NITRITE, URINE NEGATIVE (negative)
[2025-05-12 12:14] LABS: BACTERIA, URINE RARE /hpf (negative); CASTS, URINE NONE SEEN \\lpf; CRYSTALS, URINE AMORPHOUS URATES 3+ (0-1+); EPITHELIAL CELLS, URINE 0 /lpf (0-1+); REFLEX CULTURE, URINE No (No)
[2025-05-12 12:18] LABS: ALT (SGPT) 26.0 U/L (14-59); AST (SGOT) 22.0 U/L (15-37); GLOMERULAR FILTRATION RATE,EST 87.0 mL/min (>60); PROTEIN, TOTAL 8.2 g/dL (6.4-8.2); UREA NITROGEN 22.0 mg/dL (7-18)
[2025-05-12] MEDS ORDERED: PROCHLORPERAZINE EDISYLATE 10 MG/2 ML VIAL IV ONE (13:30)
[2025-05-12] MEDS ORDERED: PERCOCET 5-3251 EACH PO (15:22)
[2025-05-12] MEDS ORDERED: REGLAN10 MG PO (15:22)
[2025-05-12 15:36] VITALS: BP 132/82
[2025-05-14] MEDS ORDERED: FLOMAX0.4 MG PO (13:14)
[2025-05-14] MEDS ORDERED: TRAMADOL HCL25 MG PO (13:15)
[2025-05-14] MEDS ORDERED: PHENERGAN25 MG/1 ML PO (13:16)
== END 2025-05-12 15:37 | disposition home or self-care (01) ==
LOC: ED 10:45
PROVIDERS: Emergency Medicine
DX: R10.11 Right upper quadrant pain (principal); Z88.0 Allergy status to penicillin; Z79.899 Other long term (current) drug therapy
CPT/HCPCS: 36415; 74177; 76705; 80053; 81001; 83690; 85025; 96374; 96375; 99284-25; J0780; J2270; J2405; J7030; Q9967

== ENCOUNTER 2025-05-15 07:55 | Day surgery (SDC) | payer MEDICARE ==
[2025-05-15] VITALS (9 sets, daily range): BP systolic 143–186; BP diastolic 72–91
[~2025-05-15] VITALS: Ht 177.8 cm; Wt 75.0 kg
[~2025-05-15 07:55] MED LIST changes: +CEFAZOLIN SODIUM 2 GM in SODIUM CHLORIDE 0.9% 100 ML IV SCH; +HEParin SOD (PORCINE) 5,000 UNIT/ML SDV SUB-Q SCH; +IBLOOD GLUCOSE TEST STRIP 1 EA TEST VI PRN; +LACTATED RINGER'S 1,000 ML IV SCH; +LIDOCAINE HCL 1% 5 ML SDV INJ ONE; +PERCOCET 5-3251 EACH PO; +PHENERGAN25 MG/1 ML PO; +REGLAN10 MG PO; +SODIUM CHLORIDE 0.9% 40 ML IV ONE; +TRAMADOL HCL25 MG PO
[2025-05-15] MEDS ORDERED: DEXAMETHASONE SOD PHOS 4 MG/ML VIAL ONE (08:37)
[2025-05-15] MEDS ORDERED: LIDOCAINE HCL 2% 5 ML SDV ONE (08:38)
[2025-05-15] MEDS ORDERED: ROCURONIUM BROMIDE 50 MG/5 ML SYR ONE (08:38)
[2025-05-15] MEDS ORDERED: KETAMINE in NS 50 MG/5 ML SYR ONE (08:38)
[2025-05-15] MEDS ORDERED: ACETAMINOPHEN 1,000 MG/100 ML VIAL ONE (08:38)
[2025-05-15] MEDS ORDERED: fentaNYL citrate 100 MCG/2 ML VIAL ONE ×2 (08:38→10:44)
[2025-05-15] MEDS ORDERED: SCOPOLAMINE 1 MG/3 DAYS PATCH 1 EACH TDSY ONE (08:42)
[2025-05-15] MEDS ORDERED: PROMETHAZINE HCL 50 MG/ML SDV IM ONE (09:30)
[2025-05-15] MEDS ORDERED: IBLOOD GLUCOSE TEST STRIP 1 EA TEST VI PRN (09:45)
[2025-05-15] MEDS ORDERED: fentaNYL citrate 50 MCG/ML SDV IV PRN (09:45)
[2025-05-15] MEDS ORDERED: NALOXONE HCL 0.4 MG SYR IV PRN ×2 (09:45→11:00)
[2025-05-15] MEDS ORDERED: KETOROLAC TROMETHAMINE 30 MG/ML VIAL IV PRN (09:45)
[2025-05-15] MEDS ORDERED: SUGAMMADEX SODIUM 200 MG/2 ML ML ONE (10:24)
--- NOTE | 2025-05-15 10:56 | NUR ---
05/15/25 1056 Jo Ann Mike 1049: PT ARRIVES TO PACU DROWSY, BUT REACTIVE TO STIMULI. REPORT RECEIVED FROM MEDICAL IMAGING TECH AND SOIL AND PLANT SCIENTIST.
[2025-05-15] MEDS ORDERED: LACTATED RINGER'S 1,000 ML IV SCH ×2 (11:00→16:45)
[2025-05-15] MEDS ORDERED: IBUPROFEN 600 MG TAB PO PRN (11:00)
[2025-05-15] MEDS ORDERED: ACETAMINOPHEN 500 MG TAB PO PRN (11:00)
[2025-05-15] MEDS ORDERED: OXYCODONE/APAP 7.5/325 TAB PO PRN (11:00)
[2025-05-15] MEDS ORDERED: ONDANSETRON ODT8 MG PO (11:02)
[2025-05-15] MEDS ORDERED: MOTRIN IB200 MG PO (11:03)
[2025-05-15] MEDS ORDERED: TYLENOL EXTRA500 MG PO (11:03)
[2025-05-15] MEDS ORDERED: PERCOCET 7.5-31 EACH PO (11:03)
--- NOTE | 2025-05-15 11:45 | NUR ---
1135: PATIENT BACK IN DAY SURGERY ROOM. DROWSY. SLEEPING, BUT EASILY AWAKENS TO VOICE. DENIES PAIN. DENIES NAUSEA. ABDOMINAL SITES X 4 WITH SMALL AMOUNT OF RED DRAINAGE. SCDs ON. IV SITE WNL. CALL LIGHT WITHIN REACH.
[2025-05-15] MEDS ORDERED: SEVOFLURANE 250 ML BTL INH ONE (13:44)
--- NOTE | 2025-05-15 14:46 | NUR ---
1205: CHECKED PATIENT. PATIENT SLEEPING. DID NOT DISTURB. 1240: VS CHECKED. DENIES PAIN. DROWSY. SLEEPING WHEN NOT DISTRUBED. ABDOMINAL SITES WITH SMALL AMOUNT OF RED DRAINAGE. PATIENT ASSISTED OOB AND TO BATHROOM. VOID ONLY 75 ML. GAIT STEADY BACK TO ROOM. WHILE PATIENT UP TO BATHROOM, PATIENT BECAME NAUSEOUS. 1255: PATIENT UPDATED ON PATIENT'S NAUSEA. NEW ORDER RECEIVED FOR DROPERIDOL IV. 1305: IV DROPDERIDOL GIVEN.
[2025-05-15] MEDS ORDERED: LIDOCAINE 2% VISCOUS 6 ML SYR TOP ONE ×2 (15:15→15:45)
[2025-05-15] MEDS ORDERED: HYDROCORTISONE SOD SUCCINATE 100 MG/2 ML VIAL IV ONE (16:00)
--- NOTE | 2025-05-15 16:47 | NUR ---
1440: STAND BY ASSIST WHILE PATIENT GOT OOB AND WALKED TO BATHROOM. VOID ONLY 100 ML. PATIENT STATES HE DOESN'T FEEL LIKE HE IS EMPTYING HIS BLADDER COMPLETELY. PATIENT ALSO BECAME NAUSEOUS AND HAD EPISODE OF EMESIS WHILE IN BATHROOM ATTEMPTING TO VOID. 1455: VS CHECKED. DR. MCCLELLAND IN ROOM TALKING WITH PATIENT. 1505: PATIENT BLADDER SCANNED FOR APPROXIMATELY [address] MCCLELLAND NOTIFIED. ORDER FOR STRAIGHT CATH GIVEN. 1530: STRAIGHT CATH ATTEMPTED WITH 14 FR STRAIGHT CATH KIT. UNABLE TO PASS CATHETER PAST PROSTATE. UROJET USED FOR PATIENT COMFORT. 1548: 14 FR COUDE CATHETER PLACED. URINE DRAINING. VS CHECKED. 1620: IV SOLU-CORTEF GIVEN. PATIENT AGAIN VERY NAUSEOUS UPON AWAKENING. CATHETER DONE DRAINING. CATHETER DC'D WNL. PATIENT TOLERATED CATHETER DC WELL. 1705: REPORT CALLED TO MED-RIVETER. 1710: PATIENT TRANSFERRED TO MED-SURG ROOM 108.
--- NOTE | 2025-05-15 17:33 | NUR ---
PT ARRIVES TO MED-SURG VIA STRETCHER IS ABLE TO SELF TRANSFER TO THE BED. PT BEGINS WRETCHING AND VOMITING SHORTLY AFTER. CLEAR COLORED AND FOAMY WHITE APPROX 100 MLS. COOL CLOTH, TISSUES, DRY TOWEL PROVIDED PT CONTINUES TO WRETCH FOR APPROX 5 MINUTES THEN QUIETS AND IS NOW RESTING EYES CLOSED. DENIES WANT OF CRACKERS, SODA, H20, OR ANYTHING ELSE. BED IS ELEVATED ABOUT 30 DEGREES PT RESTING EYES CLOSED. PULSE OX IN PLACE SATS 96% ON ROOM AIR, SCD'S IN PLACE. PT ORIENTED TO CALL LIGHT AND BED CONTROLS. IV INFUSING PER ORDERS
--- NOTE | 2025-05-15 18:00 | NUR ---
PT CONTINUES TO REST EYES CLOSED, LEFT UNDISTURBED. NO FURTHER WRETCHING OR EMESIS. CALL LIGHT IS IN HIS LAP H20 AT BEDSIDE EMESIS BAG IN REACH
--- NOTE | 2025-05-15 18:44 | NUR ---
MEWS COMPLETED PT SCORES OUTSIDE NORMAL PARAMETER. ELEVATED TEMP IS MOST LIKELY DUE TO 3 WARM BALNKETS APPLIED AT TIME OF VITALS BEING TAKEN.
--- NOTE | 2025-05-15 19:05 | NUR ---
REPORT RECEIVED FROM RUPAL MOCK. pt UP TO THE BR. APPLE THINNER IN TO ASSIST pt BACK TO BED. pt REQUESTING HOME MEDS. THIS RN DICUSSED PLAN WITH pt ABOUT POSSIBLY GOING HOME LATER IF HE FEELS BETTER AND CAN PEE. pt STATED HIS UNDER STANDING GINGERALE PROVIDED. pt DENIES ANY OTHER NEEDS AT THIS TIME. CALL LIGHT WITHIN REACH.
--- NOTE | 2025-05-15 20:25 | NUR ---
ASSESSMENT AND VITAL SIGNS DONE. LAP SITE DRY AND INTACT. BOWEL TONES ACTIVE. pt BLADDER SCANNED FOR 395mL. pt ONLY ABLE TO PEE 50mL AT THIS TIME. IV ASSESSED, WNL. IVF INFUSING PER ORDER. pt C/O 02/15 PAIN. PRN PAIN MEDS ADMINISTERED. pt STATES HIS NAUSEA IS BETTER AT THIS TIME AFTER PRN ANTINAUSEA MEDS WERE GIVEN. pt DENIES ANY OTHER NEEDS AT THIS TIME. SCD'S ON. CPOX ON. CALL LIGHT WITHIN REACH.
[2025-05-15] MEDS ORDERED: AMLODIPINE BESYLATE 10 MG TAB PO ONE (21:00)
[2025-05-15] MEDS ORDERED: TAMSULOSIN HCL 0.4 MG CAP PO ONE (21:00)
--- NOTE | 2025-05-15 21:26 | NUR ---
THIS RN CALLED DR MCCLELLAND FOR pt UNABLE TO VOID AT THIS TIME AND STILL HAVING NAUSEA AND ALSO HAVING ELEVATED BP. pt WANTING TO STAY THE NIGHT. NEW ORDERS RECEIVED AND VERFIED WITH REPEAT BACK METHOD. pt UP TO THE BR AND PEED ANOTHER 100mL. pt WALKED ONE LAP AROUND MED/SURG AND GOT NAUSEOUS. PRN ANTINAUSEA MEDS ADMINISTERED. pt DENIES ANY OTHER NEEDS AT THIS TIME. CALL LIGHT WITHIN REACH. SCHEDULED MEDS ADMINISTERED.
--- NOTE | 2025-05-15 21:30 | NUR ---
pt AMBULATES ONE LAP IN HALLWAY. COMPLAINS OF NAUSEA, PRN MEDICATION ADMINISTERED. CALL LIGHT IN REACH.
--- NOTE | 2025-05-15 23:10 | NUR ---
ANSWERED CALL LIGHT. SBA PATIENT UP TO USE THE BATHROOM TO VOID 175ML IN THE URINAL. PATIENT IS BACK IN BED. BEEF BROTH AND JELLO PROVIDED PER PATIENT STATED HIS STOMACH IS EMPTY. ICE WATER REFILLED. PATIENT WAS EATING WHEN THIS MUD LOGGER LEFT THE ROOM.
--- NOTE | 2025-05-16 00:14 | NUR ---
pt RESTING IN THE BED WITH EYES CLOSED. RR EVEN AND UNLABORED. CALL LIGHT WITHIN REACH.
--- NOTE | 2025-05-16 00:50 | NUR ---
PATIENT CLLED TO USE THE BATHROOM. SBA. PATIENT VOIDED 125ML CLEAR YELLOW URINE. BACK TO BED. SCD AND CPOX ON. NO FURTHER NEEDS AT THIS TIME.
[2025-05-16 01:39] VITALS: BP 153/80
--- NOTE | 2025-05-16 02:08 | NUR ---
VITAL SIGNS DONE. pt UP TO BR. MACK PROVIDED. pt DENIES ANY OTHER NEEDS AT THIS TIME. CALL LIGHT WITHIN REACH. pt DENIES ANY NAUSEA AT THIS TIME.
--- NOTE | 2025-05-16 03:30 | NUR ---
pt CALLED FOR AN ALARMING CPOX. LOW BATTERY ALARM. THIS RN PLUGGED CORD IN AND SILENCED ALARM. pt DENIES ANY NEEDS AT THIS TIME. CALL LIGHT WITHIN REACH.
[2025-05-16 05:15] VITALS: BP 167/82
[2025-05-16 05:38] VITALS: BP 167/82
--- NOTE | 2025-05-16 05:53 | NUR ---
IN RM TO CHECK ON pt. pt DENIES ANY NAUSEA OR PAIN AT THIS TIME. CALL LIGHT WITHIN REACH.
--- NOTE | 2025-05-16 07:15 | NUR ---
RECEIVED REPORT FROM EMILI POWELL. PT LAYING IN BED WATCHING TV. IV SALINE LOCKED D/T TURNER SPLITTER MACHINE OPERATOR PREPARING SHOWER FOR PT. WHITEBOARD UPDATED, CALL LIGHT IN REACH, STATES NO NEEDS AT THIS TIME.
--- NOTE | 2025-05-16 07:39 | NUR ---
Spoke with lOeg. He is feeling much better. Pt was unable to meet criteria for dc last night as he could not void and was vomiting. He cheerfully tells me his no longer nuaseated and was able to void. He is getting ready to get into the shower. He plans on going home with his . They have a ramp. He does not use a walker or cane. He is financially stable and denies any safety concerns.
[2025-05-16 09:21] VITALS: BP 147/73
--- NOTE | 2025-05-16 09:24 | NUR ---
THIS TECHNOLOGY SUPPORT ANALYST SET PATIENT UP FOR SHOWER. PATIENT ABLE TO INDEPENDENTLY SHOWER. CALL LIGHT WITHIN REACH, NO FURTHER NEEDS.
--- NOTE | 2025-05-16 09:24 | NUR ---
PATIENT IN BED AT THIS TIME. CONCRETE PLANT LABORER CHARTED VITALS AND I&O'S. CALL LIGHT WITHIN REACH, NO FURTHER NEEDS.
--- NOTE | 2025-05-16 09:35 | NUR ---
THIS RN WENT OVER DC PACKET WITH PATIENT, QUESTIONS ANSWERED. IV REMOVED, CATHETER TIP INTACT, TOLERATED WELL. PT WAITING FOR PHARMACY TO GO OVER MEDICATIONS. NO OTHER NEEDS AT THIS TIME. CALL LIGHT IN REACH.
[2025-05-16 09:37] VITALS: BP 147/73
--- NOTE | 2025-05-16 10:38 | NUR ---
UR CLINICAL REVIEW: 2 MN FOR VERSALUS-PER CONTENT CREATION MANAGER MEETS EXTENDED STAY RECOVERY FOR [facility] WITH URINARY RETENTION MEDICARE EXTENDED STAY 05/15/25 @ 1700 ORDER MATCHES REG NO AUTH REQUIRED PER MEDICARE GUIDELINES PATIENT TO DC TODAY 05/16/25
--- NOTE | 2025-05-16 11:20 | NUR ---
PT DISCHARGE PACKETS REVIEWED AND GIVEN, QUESTIONS ANSWERED. DC PAPERS SIGNED BY PATIENT AND THIS RN. PTS LEAVING WITH PT. PT AMBULATING TO FRONT OF BUILDING WITH D/C SLIP. PT LEAVING WITH ALL BELONGINGS. PT DRESSED IN OWN CLOTHES, VSS.
--- NOTE | 2025-05-18 12:44 | PATH ---
[facility] [address] [place], [place] [address] Signed SPECIMEN(S): A GALLBLADDER SPECIMEN SOURCE: A. GALLBLADDER CLINICAL HISTORY: Epigastric pain; upper abdomen pain; nausea. FINAL PATHOLOGIC DIAGNOSIS: Gallbladder, cholecystectomy: - Chronic cholecystitis. - Cholesterolosis. - No malignancy identified. [facility] MICROSCOPIC EXAMINATION: Histologic sections of all submitted blocks are examined by light microscopy. These findings, together with the gross examination, support the pathologic diagnosis. Histologic sections of all submitted blocks are examined by light microscopy. These findings, together with the gross examination, support the pathologic diagnosis. GROSS DESCRIPTION: The specimen, labeled and designated "Hesham Lex, " and designated on the requisition "gallbladder," is received in formalin and consists of Specimen: Previously opened gallbladder. Dimensions: 7.6 x 4.5 x 1.6 cm. Serosa: Yellow-green and smooth. Cystic Duct: Probe patent. Calculi: Not grossly identified. Mucosa: Green, velvety with areas of yellow flecking and polypoid yellow soft tissue fragments. Wall thickness: 0.2-0.4 cm. Lymph node: No pericystic lymph nodes are grossly identified. Additional: None. Fiber Optic Assembler sections are submitted in (A1). FB (under the direct supervision of a pathologist) The Gross Description was prepared using a voice recognition system. The report was reviewed for accuracy; however, sound-alike word errors, addition and/or deletions may occur. If there is any PATIENT NAME: BIANCA PARKS [facility] DATE OF : 58 REPORT #: [id number] PHYSICIAN: TRINA MONSALVE PCP: CONNER SANDERS MD REPORT IS CONFIDENTIAL AND NOT TO BE RELEASED WITHOUT AUTHORIZATION [facility] [address] [place], [place] [address], [place] [address] Signed question about this report, please contact Client Services. ADDITIONAL NOTES: Immunohistochemical and/or in situ hybridization studies if performed in this case included appropriate positive controls that reacted as expected. This test was developed and its performance characteristics determined by [facility]. It has not been cleared or approved by the U.S. Food and Drug Administration. The FDA has determined that such clearance or approval is not necessary. This test is used for clinical purposes. It should not be regarded as investigational or for research. [facility] is certified under the Clinical Laboratory Improvement Amendments of 1988 (CLIA) as qualified to perform high complexity clinical laboratory testing. PERFORMING LABORATORY: Technical component was performed by [facility], [address] [place] [id number] (CLIA# [id number]). Professional interpretation was performed by [facility], [address] [place] [id number] (CLIA#: [id number]). Diagnostician: Jonathan Ibanez MD Pathologist Electronically Signed 05/18/2025 Copies: ~ PATIENT NAME: BIANCA PARKS [facility] DATE OF : 58 REPORT #: [id number] PHYSICIAN: TRINA MONSALVE PCP: CONNER SANDERS MD REPORT IS CONFIDENTIAL AND NOT TO BE RELEASED WITHOUT AUTHORIZATION
--- NOTE | 2025-06-06 11:20 | OR ---
[facility] [address] [place], [place] [address] Signed DATE OF OPERATION: 05/15/2025 SURGEON: Lisa Mcclelland MD *Second operative for dictation. PREOPERATIVE DIAGNOSES: 1. Chronic acalculous cholecystitis. 2. Episodic progressive vomiting. POSTOPERATIVE DIAGNOSES: Chronic acalculous cholecystitis with subacute changes. PROCEDURES: 1. Laparoscopic cholecystectomy with intraoperative cholangiogram. 2. Surgeon-directed fluoroscopy. ANESTHESIA: General endotracheal. INDICATION: A 64-year-old white man has had chronic recurrent epigastric and right subcostal pain with protracted nausea and vomiting. Gallbladder ultrasound shows no evidence of gallstones. On May 02, a CCK-HIDA test was performed, which showed a gallbladder ejection fraction of less than 23% consistent with chronic acalculous cholecystitis or biliary dyskinesia. On the basis of these findings, I have recommended cholecystectomy preferred by laparoscopic approach. The risk of bleeding, infection, need for open procedure and most importantly failure to cure his symptoms was reviewed with him. He understands and wished to proceed. FINDINGS: The gallbladder was subacutely inflamed, more so than expected. The liver was normal. There were no other findings of concern. Intraoperative cholangiogram performed showed conventional biliary anatomy with a relatively long cystic duct. No evidence of filling defect or other abnormality. There was a small retrograde pancreatogram noted as well. DESCRIPTION OF PROCEDURE: The patient was brought to the operating room, given a general endotracheal anesthetic. Preoperative antibiotic Ancef was given. Sequential compression device stockings used and heparin subcutaneously administered. The abdomen was prepared with chlorhexidine Electronically Signed By: LISA MCCLELLAND MD 06/06/25 1120 PATIENT NAME: BIANCA PARKS OPERATIVE REPORT DATE OF : 58 REPORT #: [id number] PHYSICIAN: LISA MCCLELLAND MD PCP: CONNER ISBELL MD REPORT IS CONFIDENTIAL AND NOT TO BE RELEASED WITHOUT AUTHORIZATION [facility] [address] [place], [place] [address] Signed solution and draped sterilely. An infraumbilical incision was made and using an open Karen cannula technique, pneumoperitoneum was achieved to a level of 14 mmHg of carbon dioxide gas. Intra-abdominal inspection showed no sign of ascites or carcinomatosis. Three additional trocars were placed in usual configuration in the subxiphoid, right midclavicular, and right anterior axillary line. Gallbladder was elevated cephalad and retracted laterally. The gallbladder was more edematous and inflamed than expected. Using blunt and electrocautery dissection, the triangle of Calot was dissected free. Small clips were applied at the cystic arterial branches as necessary. A clip was applied across gallbladder cystic duct junction and transverse choledochotomy was made in the cystic duct. Egress of clear bile was noted. Using the Stewart type cholangiocatheter, intraoperative cholangiography was undertaken showing free flow of contrast in biliary tree with prompt emptying into the duodenum. Retrograde filling was normal. The cystic duct was relatively long. Three clips were applied across the cystic duct and the cystic duct transected and dissected free in a retrograde fashion using electrocautery. The gallbladder was extracted through the infraumbilical port site without problem, opened on the back table and found to have cholesterolosis and chronic inflammatory change. Irrigation was undertaken in subhepatic space showing no sign of bleeding or other problems. The trocars removed under direct visualization showing no sign of bleeding. The infraumbilical fascial incision was reapproximated with interrupted 0 Vicryl suture. All wounds were copiously irrigated with saline solution. Skin closed with interrupted 3-0 Vicryl. Steri-Strips were applied. He was extubated and taken to recovery room in good condition having suffered no complication. MD CONSTANTINE Velázquez/ASTONL /[id number] cc: Conner Isbell MD Copies: CONNER ISBELL MD ~ Electronically Signed By: LISA MCCLELLAND MD 06/06/25 1120 PATIENT NAME: BIANCA PARKS OPERATIVE REPORT DATE OF : 58 REPORT #: [id number] PHYSICIAN: LISA MCCLELLAND MD PCP: CONNER ISBELL MD REPORT IS CONFIDENTIAL AND NOT TO BE RELEASED WITHOUT AUTHORIZATION
== END 2025-05-16 10:20 | disposition home or self-care (01) ==
LOC: DS 07:55 → MS 17:05 → DS 05-16 10:20
PROVIDERS: ATTEND Surgery
PROC: BF13YZZ Fluoroscopy of Gallbladder and Bile Ducts using Other Contrast (ICD-10-PCS; 2025-05-15)
PROC: 0FT44ZZ Resection of Gallbladder, Percutaneous Endoscopic Approach (ICD-10-PCS; principal; 2025-05-15 09:45)
DX: K80.10 Calculus of gallbladder with chronic cholecystitis without obstruction (principal); I10 Essential (primary) hypertension; E78.5 Hyperlipidemia, unspecified; Z88.0 Allergy status to penicillin; Z88.1 Allergy status to other antibiotic agents
CPT/HCPCS: 00790; 51798; 74300; 88304; 96360; 96361; A9270; J0131; J0688; J1100; J1644; J1720; J1790; J2003; J2405; J2550; J2704; J3010; J3490; J7121